=== PATIENT | female | born 1985 | race Caucasian/White ===

== ENCOUNTER 2016-04-30 09:02 | Inpatient (IN) | payer OTHER ==
[~2016-04-30] VITALS: Ht 154.9 cm; Wt 95.3 kg
[~2016-04-30 09:02] MED LIST: Docusate Sod/Senna PO; PERC5TAB12 PO; PRENTAB72 PO
[2016-05-22] VITALS (8 sets, daily range): BP systolic 104–137; BP diastolic 55–67; PULSE 6–88; RESP 18; TEMP 97.5–98.3; O2SAT 97–99
[2016-05-22] MEDS ORDERED: OXYTOCIN 10 UNIT/ML AMP ONE (08:58)
[2016-05-22] MEDS ORDERED: DICLOFENAC SODIUM 37.5 MG/ML VIAL IV PUSH ONE (09:36)
[2016-05-22] MEDS ORDERED: CITRIC ACID-SODIUM CITRATE LIQ 30 ML UDC PO SCH (09:45)
[2016-05-22] MEDS ORDERED: LACTATED RINGER'S 1000 ML IV ONE (09:45)
[2016-05-22] MEDS ORDERED: ceFAZolin 2 GM PREMIX 50 ML IV SCH (09:45)
[2016-05-22 09:54] LABS: AUTOMATED NEUTROPHIL # 7.2 TH/MM3 (1.8-7.7); BASOPHIL % 0.2 % (0.0-2.0); EOSINOPHIL # 0.2 TH/MM3 (0-0.4); HEMATOCRIT 31.9 % (35.0-46.0); HEMO FLAGS DIFF FINAL; LYMPHOCYTE # 1.8 TH/MM3 (1.0-4.8); MEAN CELL VOLUME 80.7 FL (80.0-100.0); MEAN CORPUSCULAR HEMOGLOBIN 26.1 PG (27.0-34.0); MEAN CORPUSCULAR HGB CONC 32.3 % (32.0-36.0); MONO % 9.1 % (0.0-8.0); NEUT % 70.7 % (16.0-70.0); PLATELET COUNT 125 TH/MM3 (150-450); RED BLOOD COUNT 3.95 MIL/MM3 (4.00-5.30); RED CELL DISTRIBUTION WIDTH 14.9 % (11.6-17.2); WHITE BLOOD COUNT 10.2 TH/MM3 (4.0-11.0)
[2016-05-22] MEDS: LACTATED RINGER'S 1000 ML IV SCH ×2 (10:00→22:02)
[2016-05-22 10:06] LABS: BACTERIA, URINE OCC /hpf; BLOOD, URINE SMALL (NEG); COMMENT (UR) CULT NOT INDICATED; CULTURE IF INDICATED CULT NOT INDICATED; GLUCOSE,URINE NEG (NEG); KETONE, URINE NEG (NEG); MUCUS URINE FEW /lpf (OCC); NITRITE,URINE NEG (NEG); PH, URINE 6.5 (5.0-8.5); SQUAMOUS EPITHELIAL CELL URINE 11 /hpf (0-5); URINE COLOR YELLOW (YELLW/STRAW)
[2016-05-22 10:23] LABS: ALKALINE PHOSPHATASE 159 U/L (45-117); TOTAL BILIRUBIN ADULT 0.3 MG/DL (0.2-1.0)
[2016-05-22 10:29] LABS: ALT (GPT) 19 U/L (10-53); ANION GAP 9 MEQ/L (5-15); AST (GOT) 25 U/L (15-37); BICARBONATE 21.9 MEQ/L (21.0-32.0); BLOOD UREA NITROGEN 6 MG/DL (7-18); CHLORIDE 108 MEQ/L (98-107); GLOMERULAR FILTRATION RATE 115 ML/MIN (>89); SODIUM (NA) 139 MEQ/L (136-145)
--- NOTE | 2016-05-22 11:28 | PD.OB.DELI ---
Procedure Note Section Procedure Pre Op Diagnosis 38 week IUP Pre eclampsia not severe multiparity Post Op Diagnosis: Post Op Diagnosis same, delivered Performed by Rocio Aguirre Procedure: Repeat Low Transverse Sec, Other (bilaeral fimbriectomy) Indication for delivery: Desired elective repeat Informed consent obtained: For anesthesia, For procedure Confirmed correct: Patient, Procedure, Site, Time-out taken Anesthesia: Spinal Medication prior to procedure: As documented in eMAR Monitoring during procedure: Blood pressure monitoring Urinary catheter: Inserted using sterile technique, To dependent drainage, ml urine output Sterile preparation: Duraprep, In usual fashion Position: Supine with wedge to right side Operative Features Skin Incision: Pfannenstiel Uterine Incision: Low transverse w/knife / blunt ext Membranes Ruptured: Artificially Presentation: Occiput anterior Delivery of infant: Assisted : Female, Single One Minute : 8 Five Minute : 9 Weight: 8 4 Status of infant: Viable, Cord blood Placenta delivered: Intact, [facility] Medications: Antibiotics Estimated blood loss: average Procedure tolerated: Well Maternal Complications: Other (pre eclampsia not severe) Maternal Condition: Stable Condition: Stable Procedure in detail dictated Rocio Aguirre MD May 22, 2016 11:28
[2016-05-22] MEDS ORDERED: OXYTOCIN 30 UNITS-500ML PREMIX 500 ML IV ONE (11:30)
[2016-05-22] MEDS ORDERED: ONDANSETRON HCL 4 MG/2 ML VIAL IV PUSH PRN (11:30)
[2016-05-22] MEDS ORDERED: ZOLPIDEM TARTRATE 5 MG TAB PO PRN (11:30)
[2016-05-22] MEDS ORDERED: SIMETHICONE 80 MG CHEWABLE TAB PO PRN (11:30)
[2016-05-22] MEDS ORDERED: SODIUM CHLORIDE 0.9% FLUSH 5 ML FLUSH IV PRN (11:30)
[2016-05-22] MEDS ORDERED: MORPHINE SULFATE PF 5 MG/10 ML VIAL ONE (11:32)
[2016-05-22] MEDS ORDERED: SODIUM CHLORIDE 0.9% FLUSH 5 ML FLUSH ONE (11:43)
[2016-05-22] MEDS ORDERED: ACETAMINOPHEN 1000 MG/100 ML VIAL IV ONE ×2 (11:55→12:00)
[2016-05-22] MEDS ORDERED: LACTATED RINGER'S 1,000 ML BAG IV ONE (12:05)
[2016-05-22] MEDS ORDERED: EPIDURAL-DO NOT ADMINISTER ANTICOAGULANTS XX PRN (13:30)
[2016-05-22] MEDS ORDERED: EPIDURAL-DIPHENHYDRAMINE HCL 50 MG/ML VIAL IV PUSH PRN (13:30)
[2016-05-22] MEDS ORDERED: EPIDURAL-NO SYSTEMIC NARCOTICS XX PRN (13:30)
[2016-05-22] MEDS ORDERED: EPIDURAL-NALOXONE HCL 0.4 MG/ML AMP IV PRN (13:30)
[2016-05-22] MEDS: EPIDURAL-DIPHENHYDRAMINE HCL 50 MG CAP PO PRN ×2 (15:19→22:02)
[2016-05-22] MEDS: IBUPROFEN 600 MG TAB PO PRN ×2 (15:20→22:02)
[2016-05-22] MEDS ORDERED: LACTATED RINGER'S 1000 ML INJ 1,000 ML IV SCH (16:28)
[2016-05-22] MEDS: SODIUM CHLORIDE 0.9% FLUSH 5 ML FLUSH IV SCH (20:04)
[2016-05-22] MEDS ORDERED: OXYTOCIN 30 UNITS-500ML PREMIX 500 ML IV PRN (21:30)
[2016-05-23] MEDS: EPIDURAL-DIPHENHYDRAMINE HCL 50 MG CAP PO PRN (04:50)
[2016-05-23] MEDS: IBUPROFEN 600 MG TAB PO PRN ×3 (04:50→20:12)
[2016-05-23] MEDS: LACTATED RINGER'S 1000 ML IV SCH (05:45)
[2016-05-23 05:52] LABS: AUTOMATED NEUTROPHIL # 6.8 TH/MM3 (1.8-7.7); BASOPHIL % 0.2 % (0.0-2.0); EOSINOPHIL # 0.1 TH/MM3 (0-0.4); EOSINOPHIL % 1.6 % (0.0-4.0); HEMATOCRIT 31.6 % (35.0-46.0); HEMO FLAGS DIFF FINAL; LYMPH % 11.3 % (9.0-44.0); MEAN CELL VOLUME 80.5 FL (80.0-100.0); MEAN CORPUSCULAR HEMOGLOBIN 26.3 PG (27.0-34.0); MEAN CORPUSCULAR HGB CONC 32.7 % (32.0-36.0); MONO % 10.2 % (0.0-8.0); NEUT % 76.7 % (16.0-70.0); PLATELET COUNT 114 TH/MM3 (150-450); RED BLOOD COUNT 3.93 MIL/MM3 (4.00-5.30); RED CELL DISTRIBUTION WIDTH 14.8 % (11.6-17.2); WHITE BLOOD COUNT 8.9 TH/MM3 (4.0-11.0)
[2016-05-23 06:12] LABS: URIC ACID 5.4 MG/DL (2.6-6.0)
[2016-05-23 06:13] LABS: INDIRECT BILIRUBIN 0.2 MG/DL (0.0-0.8); TOTAL BILIRUBIN ADULT 0.3 MG/DL (0.2-1.0)
[2016-05-23 08:20] VITALS: BP 113/60; PULSE 62; RESP 18; TEMP 98.1
--- NOTE | 2016-05-23 08:50 | HHI.OB ---
Subjective Post Operative Day: 1 Remarks POD#1, Stable Objective Vitals/I&O Vital Signs Date Time Temp Pulse Resp B/P Pulse Ox O2 Delivery O2 Flow Rate FiO2 05/22/16 19:21 97.7 76 18 137/64 98 05/22/16 17:00 6 122/58 05/22/16 17:00 98.3 67 18 05/22/16 13:05 98.1 67 18 106/67 05/22/16 12:16 117/67 05/22/16 12:16 97.5 05/22/16 12:05 97 05/22/16 12:00 88 116/66 05/22/16 11:49 87 18 104/55 98 05/22/16 11:35 88 115/64 05/22/16 11:35 97.5 18 99 Result Diagram: 05/23/16 0541 05/22/16 0910 Objective Remarks GENERAL: Well-nourished, well-developed patient. CARDIOVASCULAR: Regular rate and rhythm without murmurs, gallops, or rubs. RESPIRATORY: Breath sounds equal bilaterally. No accessory muscle use. ABDOMEN/GI: Abdomen soft, non-tender, bowel sounds present. Incision: Clean, dry and intact. Fundus: Firm, non-tender at umbilicus. GENITOURINARY: Light to moderate bleeding. EXTREMITIES: No cyanosis or edema, non-tender, without signs of DVT. Medications and IVs Current Medications Medications (Trade) Dose Ordered Sig/Cherelle Route Start Time Stop Time Status Last Admin Lactated Ringer's 1,000 ml @ 150 mls/hr Q6H40M IV 05/22/16 09:45 05/22/16 22:02 (Lr 1000 ml Inj) 1,000 ml @ 100 mls/hr Q10H IV 05/22/16 16:28 05/23/16 12:27 (NS Flush) 2 ml BID IV 05/22/16 21:00 (NS Flush) 2 ml UNSCH PRN IV 05/22/16 11:30 (Mylicon Chew) 80 mg QID PRN PO 05/22/16 11:30 (Motrin) 600 mg Q6H PRN PO 05/22/16 11:30 05/23/16 04:50 (Percocet 5-325 Mg) 1 tab Q4H PRN PO 05/22/16 11:30 (Percocet 5-325 Mg) 2 tab Q4H PRN PO 05/22/16 11:30 (Diana-Colace) 2 tab Q12H PRN PO 05/22/16 11:30 (Ambien) 5 mg HS PRN PO 05/22/16 11:30 (M-M-R Ii Inj) 0.5 ml ONCE ONCE SQ 05/23/16 16:00 05/23/16 16:01 (Boostrix Inj) 0.5 ml ONCE ONCE IM 05/23/16 16:00 05/23/16 16:01 (Zofran Inj) 4 mg Q6H PRN IV PUSH 05/22/16 11:30 Miscellaneous Information NO SYSTEMIC NARCOTICS TO BE GIVEN FO... UNSCH PRN XX 05/22/16 13:30 05/23/16 13:29 (Narcan Inj) 0.4 mg UNSCH PRN IV 05/22/16 13:30 05/23/16 13:29 (Benadryl Inj) 25 mg Q6H PRN IV PUSH 05/22/16 13:30 05/23/16 13:29 (Benadryl) 50 mg Q6H PRN PO 05/22/16 13:30 05/23/16 13:29 05/23/16 04:50 Miscellaneous Information ALL NURSING DEPARTMENTS UNSCH PRN XX 05/22/16 13:30 05/23/16 13:29 Assessment/Plan Assessment and Plan POD#1, Stable Discharge Planning Does not meet criteria Attending Attestation Seen by Topher Gomez MD May 23, 2016 08:50
[2016-05-23] MEDS: DOCUSATE SODIUM 50 MG/SENNA 8.6 MG TAB PO PRN ×2 (09:09→20:13)
[2016-05-23] MEDS: oxyCODONE/ACETAMINOPHEN 5 MG/325 MG TAB PO PRN ×4 (09:10→22:10)
--- NOTE | 2016-05-23 12:03 | MP ---
cc: ROCIO SHER DATE OF SURGERY: 05/22/2016 DATE OF : 1985 PREOPERATIVE DIAGNOSIS 1. 38-week intrauterine with preeclampsia, not severe. 2. History of previous section x2. 3. Multiparity POSTOPERATIVE DIAGNOSIS 1. 38-week intrauterine with preeclampsia, not severe. 2. History of previous section x2. 3. Multiparity PROCEDURE 1. Repeat low transverse segment section. 2. tubal fimbriectomy. ANESTHESIA Spinal with Duramorph. SURGEON Carla AIR CONDITIONING TECHNICIAN Sandy Suarez FINDINGS A living female was delivered from [place] with clear fluid and a nuchal cord x2. Her weight was 8 pounds 4 ounces. There was a little bit of a window in the lower uterine segment but no evidence of separation. Both fimbria were removed without difficulty. The baby's Apgars were 8 at one and 9 at five. ESTIMATED BLOOD LOSS Average. COUNTS Sponge, instrument and needle counts were correct. SPECIMEN [facility] Tubes were sent to pathology for confirmation. DETAILS OF PROCEDURE The patient was identified as Misty Real. The permit was reviewed with her. She received 2 grams Ancef within an hour of incision. She was walked to the back, placed on the operating table in the dorsal supine position with weight off the vena cava. This was after her spinal had been inserted. She had sequential stockings on and then a Carrero catheter was placed and she was prepped and draped in the usual sterile fashion. A timeout was performed with everybody in attendance. Analgesia was assured. A Pfannenstiel incision was made through her previous incision and taken down with the Bovie to the rectus muscle. The rectus muscle had a diastasis, was in the midline and then a bladder retractor was placed to hold down the bladder. An incision was made in a thin portion of the lower uterine segment releasing clear fluid and extended bluntly in the midline. The infant was delivered with the findings as noted above. Apgars 8 at one and 9 at five. Weight 8 pounds 4 ounces. The cord was left pulsing for 45 seconds before it was clamped and cut, and the infant was handed to the neonatology team in attending. Cord blood was obtained. The placenta was delivered manually intact from the posterior wall with a three-vessel cord. The uterus was exteriorized and cleaned with a lap sponge. It was closed with chromic in a running interlocking fashion and a second horizontal imbricating layer. The left tube was grasped and the distal portion including the fimbria were tied off and excised. The pedicle was hemostatic. This was repeated on the opposite side without difficulty. The tubes were tagged and sent to pathology. The uterus was replaced in the peritoneal cavity. There was no bleeding from the incisions. All areas were examined for hemostasis. Irrigation was performed. A running suture closed the combination of peritoneum and rectus muscle to repair the diastasis. The rectus fascia was closed with #1 Vicryl in a non-interlocking fashion. The subcutaneous layer was closed with 3-0 plain and the skin was closed with 4-0 Vicryl on a Todd needle. Estimated blood loss was average to less than average. Sponge, instrument and needle count were correct. She tolerated the procedure well and mom and baby are in the recovery room. Rocio Sher MD PPC/BT /11:25 AM /11:39 AM
[2016-05-23] MEDS ORDERED: MEASLES, MUMPS, RUBELLA VACCINE 0.5 ML VIAL SQ ONE (16:00)
[2016-05-23] MEDS ORDERED: DIPHTH/TETANUS/ACEL PERTUSSIS (BOOSTER) 0.5 ML VIAL/PFS IM ONE (16:00)
[2016-05-23 17:00] VITALS: BP 122/61; PULSE 74; RESP 16; TEMP 98.4
[2016-05-23 20:00] VITALS: BP 105/69; PULSE 65; RESP 20; TEMP 99
[2016-05-24] MEDS: oxyCODONE/ACETAMINOPHEN 5 MG/325 MG TAB PO PRN ×5 (02:10→21:48)
[2016-05-24] MEDS: IBUPROFEN 600 MG TAB PO PRN ×2 (02:10→17:57)
--- NOTE | 2016-05-24 11:10 | HHI.OB ---
Subjective Post Operative Day: 2 Remarks POD#2; Stable, Objective Vitals/I&O Vital Signs Date Time Temp Pulse Resp B/P Pulse Ox O2 Delivery O2 Flow Rate FiO2 05/23/16 20:00 99.0 65 20 05/23/16 20:00 105/69 05/23/16 17:00 98.4 74 16 05/23/16 17:00 122/61 Result Diagram: 05/23/16 0541 05/22/16 0910 Objective Remarks GENERAL: Well-nourished, well-developed patient. CARDIOVASCULAR: Regular rate and rhythm without murmurs, gallops, or rubs. RESPIRATORY: Breath sounds equal bilaterally. No accessory muscle use. ABDOMEN/GI: Abdomen soft, non-tender, bowel sounds present. Incision: Clean, dry and intact. Fundus: Firm, non-tender at umbilicus. GENITOURINARY: Light to moderate bleeding. EXTREMITIES: No cyanosis or edema, non-tender, without signs of DVT. Medications and IVs Current Medications Medications (Trade) Dose Ordered Sig/Cherelle Route Start Time Stop Time Status Last Admin (Lr 1000 ml Inj) 1,000 ml @ 150 mls/hr Q6H40M IV 05/22/16 09:45 05/22/16 22:02 (NS Flush) 2 ml BID IV 05/22/16 21:00 (NS Flush) 2 ml UNSCH PRN IV 05/22/16 11:30 (Mylicon Chew) 80 mg QID PRN PO 05/22/16 11:30 05/23/16 20:13 (Motrin) 600 mg Q6H PRN PO 05/22/16 11:30 05/24/16 02:10 (Percocet 5-325 Mg) 1 tab Q4H PRN PO 05/22/16 11:30 (Percocet 5-325 Mg) 2 tab Q4H PRN PO 05/22/16 11:30 05/24/16 08:55 (Diana-Colace) 2 tab Q12H PRN PO 05/22/16 11:30 05/23/16 20:13 (Ambien) 5 mg HS PRN PO 05/22/16 11:30 (Zofran Inj) 4 mg Q6H PRN IV PUSH 05/22/16 11:30 Assessment/Plan Assessment and Plan POD#2 ; Stable; anticipate discharge for tomorrow Discharge Planning Does not meet criteria Attending Attestation Seen by Topher Gomez MD May 24, 2016 11:10
--- NOTE | 2016-05-24 11:11 | HHI.DS ---
Admission Date May 22, 2016 at 08:48 Admitting Diagnosis Diagnosis: : Repeat : Female, Single Pt Condition on Discharge: Good Discharge Disposition: Discharge Home Discharge Instructions Diet Instructions: As Tolerated, No Restrictions Activities You Can Perform: Shower Only-No Bath Activities to Avoid: Prolonged Standing, Strenuous Activity, Driving, Sexual Activity Topher Orta MD May 24, 2016 11:11
[2016-05-24] MEDS: DOCUSATE SODIUM 50 MG/SENNA 8.6 MG TAB PO PRN (13:30)
[2016-05-24] MEDS: SODIUM CHLORIDE 0.9% FLUSH 5 ML FLUSH IV SCH (21:00)
[2016-05-25] MEDS: IBUPROFEN 600 MG TAB PO PRN ×2 (02:05→09:48)
[2016-05-25] MEDS: oxyCODONE/ACETAMINOPHEN 5 MG/325 MG TAB PO PRN ×3 (02:06→09:48)
[2016-05-25 03:05] VITALS: RESP 16
[2016-05-25] MEDS: DOCUSATE SODIUM 50 MG/SENNA 8.6 MG TAB PO PRN (05:52)
[2016-05-25] MEDS ORDERED: IBUP-232 PO (11:02)
[2016-05-25] MEDS ORDERED: OXYC1TAB63 PO (11:02)
--- NOTE | 2016-05-25 11:04 | HHI.OB ---
Subjective Post Operative Day: 2 Remarks POD#2; Stable for discharge; Objective Vitals/I&O Vital Signs Date Time Temp Pulse Resp B/P Pulse Ox O2 Delivery O2 Flow Rate FiO2 05/25/16 03:05 16 05/25/16 03:05 16 05/24/16 22:48 16 Result Diagram: 05/23/16 0541 05/22/16 0910 Objective Remarks GENERAL: Well-nourished, well-developed patient. CARDIOVASCULAR: Regular rate and rhythm without murmurs, gallops, or rubs. RESPIRATORY: Breath sounds equal bilaterally. No accessory muscle use. ABDOMEN/GI: Abdomen soft, non-tender, bowel sounds present. Incision: Clean, dry and intact. Fundus: Firm, non-tender at umbilicus. GENITOURINARY: Light to moderate bleeding. EXTREMITIES: No cyanosis or edema, non-tender, without signs of DVT. Medications and IVs Current Medications Medications (Trade) Dose Ordered Sig/Cherelle Route Start Time Stop Time Status Last Admin (Lr 1000 ml Inj) 1,000 ml @ 150 mls/hr Q6H40M IV 05/22/16 09:45 05/22/16 22:02 (NS Flush) 2 ml BID IV 05/22/16 21:00 (NS Flush) 2 ml UNSCH PRN IV 05/22/16 11:30 (Mylicon Chew) 80 mg QID PRN PO 05/22/16 11:30 05/23/16 20:13 (Motrin) 600 mg Q6H PRN PO 05/22/16 11:30 05/25/16 09:48 (Percocet 5-325 Mg) 1 tab Q4H PRN PO 05/22/16 11:30 05/25/16 09:48 (Percocet 5-325 Mg) 2 tab Q4H PRN PO 05/22/16 11:30 05/24/16 21:48 (Diana-Colace) 2 tab Q12H PRN PO 05/22/16 11:30 05/25/16 05:52 (Ambien) 5 mg HS PRN PO 05/22/16 11:30 (Zofran Inj) 4 mg Q6H PRN IV PUSH 05/22/16 11:30 Assessment/Plan Assessment and Plan POD#2 ; Stable; Discharge for today Discharge Planning Routine Attending Attestation Seen by Topher Gomez MD May 25, 2016 11:04
== END 2016-05-25 16:55 | disposition home or self-care (01) | DRG 766 ==
LOC: H2EB 05-22 08:48 → H1EA 05-22 12:31
PROVIDERS: ADMIT Obstetrics & Gynecology; ATTEND Obstetrics & Gynecology
PROC: 10D00Z1 Extraction of Products of Conception, Low, Open Approach (ICD-10-PCS; principal; 2016-05-22)
PROC: 0UB70ZZ Excision of Bilateral Fallopian Tubes, Open Approach (ICD-10-PCS; 2016-05-22)
DX: O14.94 Unspecified pre-eclampsia, complicating childbirth (principal); O34.211 Maternal care for low transverse scar from previous cesarean delivery; O69.81X0 Labor and delivery complicated by cord around neck, without compression, not applicable or unspecified; Z37.0 Single live birth; Z3A.38 38 weeks gestation of pregnancy; Z30.2 Encounter for sterilization
CPT/HCPCS: 59025; 80053; 80076; 81001; 84550; 85025; 86850; 86900; 86901; 88302; J0131; J0690; J1130; J2274; J2590; J7120; Q0163

== ENCOUNTER 2016-05-08 17:03 | Emergency (ER) | payer OTHER ==
[2016-05-08 18:32] LABS: BACTERIA, URINE OCC /hpf; BLOOD, URINE MOD (NEG); CALCIUM OXALATE CRYSTALS,URINE MOD /hpf; COMMENT (UR) CULT NOT INDICATED; CULTURE IF INDICATED CULT NOT INDICATED; GLUCOSE,URINE NEG (NEG); KETONE, URINE NEG (NEG); MUCUS URINE FEW /lpf (OCC); NITRITE,URINE NEG (NEG); SQUAMOUS EPITHELIAL CELL URINE 7 /hpf (0-5); URINE COLOR YELLOW (YELLW/STRAW)
--- NOTE | 2016-05-08 19:08 | PD ---
HPI Chief Complaint Blood in urine, minimal pain Date Seen: May 08, 2016 Travel History International Travel<30 Days: No Contact w/Intl Traveler<30Days: No Known Affected Area: No History of Present Illness HPI This patient is a 30-year-old white female previous [address] Aguirre for care presents now with pints of blood noted the urine passing small clots in the urine and active passing a small stone through the urine, she denies any vaginal bleeding she stop all the bleeding she seen is from the urethra and bladder none from the vagina and her membranes are intact ureter baby is active heart rate tracing reactive and she is having occasional contractions and the uterine irritability Para: 2 : 3 History Past Medical History Narrative Medical She denies any history of ever having a kidney stone Obstetric History Obstetric History 2 previous C-sections Past Surgical History Narrative Surgical 2 C-sections Family History Family History: Negative Social History Alcohol Use: No Tobacco Use: No Substance Abuse: No Allergies-Medications (Allergen,Severity, Reaction): Coded Allergies: No Known Allergies (Unverified , 03/15/12) Home Meds Active Scripts Oxycodone-Acetaminophen 5-325 mg (Percocet 5-325 mg)1 Tab Tab2 Tab PO Q4H PRN ( PAIN SCALE 5 TO 10) #20 TAB Ref 0 Prov:Shruthi Alvarez CNM 12/29/13 [Docusate Sod/Senna] (Diana Colace Tab 8.6 Mg Tab)1 TAB TAB No Conflict Check2 Tab PO Q12H PRN (CONSTIPATION) #15 TAB Ref 0 Prov:Shruthi Alvarez CNM 12/29/13 Reported Medications Vit W/ Ferrous Fumara () Tab1 Po Daily 03/15/12 Review of Systems General / Constitutional: No: Fever, Weight Gain, Chills, Other Eyes: No: Diploplia, Blurred Vision, Visual changes, Pain, Photophobia HENT: No: Headaches, Vertigo, Lightheadedness Cardiovascular: No: Irregular Rhythm, Chest Pain or Discomfort, Palpitations, Tachycardia, Syncope, Varicosities, Edema, Cyanosis Respiratory: No: Cough, Short of Breath, Other Gastrointestinal: No: Nausea, Vomiting, Diarrhea Genitourinary: Hematuria, Pelvic Pain, No: Decreased Urinary Output, Oliguria Musculoskeletal: No: Limited ROM, Weakness, Cramping, Edema, Pain Skin: No Rash, No Itching, No Dryness, No Lumps, No Change in Pigmentation, No Change in Nails, No Alopecia, No Lesions Neurologic: No: Weakness, Dizziness, Syncope, Focal Abnormalities, Coordination Problem, Headache, Slurred Speech, Seizures Psychiatric: No: Depression, Suicidal Ideations, Homicidal Ideation Endocrine: No: Heat Intolerance, Cold Intolerance, Polydipsia, Polyuria, Other Physical Exam Narrative GENERAL: Well-nourished, well-developed patient. SKIN: Warm and dry. HEAD: Normocephalic and atraumatic. EYES: No scleral icterus. No injection or drainage. ENT: No nasal drainage noted. Mucous membranes pink. Airway patent. NECK: Supple, trachea midline. No JVD. CARDIOVASCULAR: Regular rate and rhythm without murmurs, gallops, or rubs. RESPIRATORY: Breath sounds equal bilaterally. No accessory muscle use. BREASTS: Bilateral exam showed no masses , no retractions, no nipple discharge. ABDOMEN/GI: Abdomen soft, non-tender, bowel sounds present, no rebound, no guarding no CVA tenderness Gravid to [36-] weeks size Fundal Height: [36-] GENITOURINARY: External Genitalia: intact and normal in appearance BUS glands: [-] Cervix: [-] Closed Dilatation: [-] Closed Effacement: [-] Thick Station: [-3] Presentation: [-] Membranes: [intact Uterine Contractions: [Occasional-] FHT's: Category: [1-] Baseline: [144-] Reactive: [yes-] Variability: [-mod] Decels: [-none] EXTREMITIES: No cyanosis or edema. BACK: Nontender without obvious deformity. No CVA tenderness. NEUROLOGICAL: Awake and alert. Motor and sensory grossly within normal limits. Five out of 5 muscle strength in all muscle groups. Normal speech. Data Data Orders Urinalysis - C+S If Indicated (05/08/16 17:44) Labs Laboratory Tests Test 05/08/16 17:40 Urine Color YELLOW Urine Turbidity HAZY Urine pH 6.0 Urine Specific [place] 1.024 Urine Protein 30 Urine Glucose (UA) NEG Urine Ketones NEG Urine Occult Blood MOD Urine Nitrite NEG Urine Bilirubin NEG Urine Urobilinogen LESS THAN 2.0 Urine Leukocyte Esterase NEG Urine RBC 45 Urine WBC 3 Urine Squamous Epithelial 7 Cells Urine Calcium Oxalate Crystals MOD Urine Bacteria OCC Urine Mucus FEW Microscopic Urinalysis Comment CULT NOT INDICATED MDM Interpretation(s) This patient is a 30-year-old white female 36 weeks previous 2 presents combining of having passed a kidney stone with blood per urine and having some crampy pains. She did not take any Tylenol or anything for the pain at home. And was offered a pain shot tonight she did not want that urinalysis shows moderate blood calcium oxalate crystals no sign of infection consistent with kidney stone. heart rate tracing is reactive as cervix is closed she's had no vaginal bleeding or membranes are intact. She will be discharged home to greatly increase her of fluid intake that she's been drinking quite a bit of water already Tylenol liberally heating pad on her back or hot bath and follow up with her primary care provider if symptoms worsen Diagnosis Diagnosis: Primary Impression: Renal calculus or stone Additional Impression: Previous section Disposition: DISCHARGE HOME Condition: Stable Sean Foster II, MD May 08, 2016 19:08
== END 2016-05-08 19:12 | disposition home or self-care (01) ==
LOC: HOBED 17:03
DX: O26.832 Pregnancy related renal disease, second trimester (principal); N28.9 Disorder of kidney and ureter, unspecified; Z3A.36 36 weeks gestation of pregnancy; Z87.442 Personal history of urinary calculi
CPT/HCPCS: 59025; 81001

== ENCOUNTER 2016-07-13 11:40 | Emergency (ER) | payer OTHER ==
[~2016-07-13] VITALS: Ht 154.9 cm; Wt 77.0 kg
[~2016-07-13 11:40] MED LIST changes: +IBUP-232 PO; +OXYC1TAB63 PO; -PERC5TAB12 PO; -PRENTAB72 PO
[2016-07-13 11:41] VITALS: BP 132/72; PULSE 64; RESP 16; TEMP 98.5; O2SAT 98
[2016-07-13 12:13] VITALS: BP_SYST 115; BP_SYST 129; BP_DIAS 70; BP_DIAS 72; BP_DIAS 77
--- NOTE | 2016-07-13 12:24 | PD ---
HPI . Vaginal bleeding Chief Complaint: Valet Manager Problem/Complaint Time Seen by Provider: 11:51 Travel History International Travel<30 days: No Contact w/Intl Traveler<30days: No Traveled to known affect area: No History of Present Illness HPI This patient is 7 weeks . She had a . She states that she bled for about 4 weeks. The bleeding did become quite light. She started bleeding heavily again about 2-1/2 weeks ago. She states that she attributed to her 1st menstrual cycle since delivery. However, the bleeding has persisted and has worsened. It was associated with some pelvic cramping today. She states that she passed a large blood clot today. She has had minimal associated dizziness. She denies any chest pain or shortness of breath. She states that she was supposed to have seen her doctor last week for her heartburn checkup unable to keep the appointment because she had to be out of town for an emergency. She does have a follow-up scheduled this coming week. Ever, because of the clot and the dizziness, she decided to come in to us to be evaluated today. No exacerbating or relieving factor. Bleeding is severe. PFSH Past Medical History Medical other: Yes (preeclampsia on third ) ?: Not : 3 Para: 3 Tubal Ligation: Yes Past Surgical History Section: Yes Social History Alcohol Use: No Tobacco Use: No Substance Use: No Allergies-Medications (Allergen,Severity, Reaction): Coded Allergies: No Known Allergies (Unverified , 07/13/16) Reported Meds & Prescriptions Reported Meds & Active Scripts Active Oxycodone-Acetaminophen 5-325 mg Tab 1 Tab PO Q4H PRN Ibuprofen 600 Mg Tab 600 Mg PO Q6H PRN [Docusate Sod/Senna] 1 TAB Tab 2 Tab PO Q12H PRN Review of Systems Except as stated in HPI: all other systems reviewed are Neg General / Constitutional: No: Fever, Chills HENT: Positive: Lightheadedness Cardiovascular: No: Chest Pain or Discomfort Respiratory: No: Shortness of Breath Gastrointestinal: No: Nausea, Vomiting, Diarrhea Genitourinary: Positive: Pelvic Pain, Vaginal Bleeding, No: Urgency, Frequency , Dysuria Physical Exam Narrative GENERAL: Healthy-appearing and in no acute distress. SKIN: Warm and dry. HEAD: Atraumatic. Normocephalic. EYES: Pupils equal and round. ENT: No nasal bleeding or discharge. Mucous membranes pink and moist. NECK: Trachea midline. CARDIOVASCULAR: Regular rate and rhythm. RESPIRATORY: No accessory muscle use. GASTROINTESTINAL: Abdomen soft, non-tender, nondistended. : Normal female. Moderate blood in the vaginal vault. Os closed. No cervical motion tenderness. Bimanual exam. MUSCULOSKELETAL: No obvious deformities. No edema. NEUROLOGICAL: Awake and alert. No obvious cranial nerve deficits. Motor grossly within normal limits. Normal speech. PSYCHIATRIC: Appropriate mood and affect; insight and judgment normal. Data Data Last Documented VS Vital Signs Date Time Temp Pulse Resp B/P Pulse Ox O2 Delivery O2 Flow Rate FiO2 07/13/16 12:13 58 115/72 64 115/70 69 129/77 07/13/16 11:41 98.5 16 98 Orders Gc And Chlamydia Pcr (07/13/16 11:51) Wet Prep Profile (07/13/16 11:51) Ed Urine Pregnancytest Poc (07/13/16 11:51) Complete Blood Count With Diff (07/13/16 11:56) Orthostatic Vital Signs (07/13/16 11:56) Labs Laboratory Tests Test 07/13/16 12:20 White Blood Count 6.7 TH/MM3 Red Blood Count 4.58 MIL/MM3 Hemoglobin 12.4 GM/DL Hematocrit 37.5 % Mean Corpuscular Volume 81.9 FL Mean Corpuscular Hemoglobin 27.0 PG Mean Corpuscular Hemoglobin 32.9 % Concent Red Cell Distribution Width 17.7 % Platelet Count 259 TH/MM3 Mean Platelet Volume 9.3 FL Neutrophils (%) (Auto) 60.5 % Lymphocytes (%) (Auto) 29.5 % Monocytes (%) (Auto) 7.2 % Eosinophils (%) (Auto) 2.1 % Basophils (%) (Auto) 0.7 % Neutrophils # (Auto) 4.1 TH/MM3 Lymphocytes # (Auto) 2.0 TH/MM3 Monocytes # (Auto) 0.5 TH/MM3 Eosinophils # (Auto) 0.1 TH/MM3 Basophils # (Auto) 0.0 TH/MM3 CBC Comment DIFF FINAL Differential Comment MDM Medical Decision Making Medical Screen Exam Complete: Yes Emergency Medical Condition: Yes Differential Diagnosis Differential diagnosis of vaginal bleeding includes but is not limited to dysfunctional uterine bleeding, normal menstrual cycle, ectopic , spontaneous AB, PID. Narrative Course Patient presents for evaluation of heavy vaginal following a . CBC Diagram 07/13/16 12:20 test is negative. Orthostatic vital signs are negative. Diagnosis Primary Impression: Vaginal bleeding Patient Instructions: Dysfunctional Uterine Bleeding (DC), General Instructions Additional Instructions: Follow-up with your supervisor paper testing as scheduled Disposition: 01 DISCHARGE HOME Condition: Stable Lovely Fischer MD Jul 13, 2016 12:24
[2016-07-13 12:53] LABS: AUTOMATED NEUTROPHIL # 4.1 TH/MM3 (1.8-7.7); BASOPHIL % 0.7 % (0.0-2.0); EOSINOPHIL # 0.1 TH/MM3 (0-0.4); EOSINOPHIL % 2.1 % (0.0-4.0); HEMATOCRIT 37.5 % (35.0-46.0); HEMO FLAGS DIFF FINAL; LYMPH % 29.5 % (9.0-44.0); MEAN CELL VOLUME 81.9 FL (80.0-100.0); MEAN CORPUSCULAR HGB CONC 32.9 % (32.0-36.0); MONO % 7.2 % (0.0-8.0); NEUT % 60.5 % (16.0-70.0); PLATELET COUNT 259 TH/MM3 (150-450); RED BLOOD COUNT 4.58 MIL/MM3 (4.00-5.30); RED CELL DISTRIBUTION WIDTH 17.7 % (11.6-17.2); WHITE BLOOD COUNT 6.7 TH/MM3 (4.0-11.0)
[2016-07-13 14:56] LABS: CHLAMYDIA PCR NOT DETECTED (NOT DETECT); NEISSERIA PCR NOT DETECTED (NOT DETECT)
--- NOTE | 2016-07-13 15:52 | RADRPT ---
EXAM DATE/TIME: 07/13/2016 14:27 [facility] COMPARISON: No previous studies available for comparison. INDICATIONS : Heavy bleeding 7 weeks post section. MEDICAL HISTORY : 7 weeks post pardum. SURGICAL HISTORY : Tubal ligation. section x 3. ENCOUNTER: Initial ACUITY: 2 weeks PAIN SCORE: 0/10 LOCATION: Bilateral pelvis MEASUREMENTS: RIGHT OVARY: 3.3 x 2.1 x 2.5 cm LEFT OVARY: 3.6 x 2.5 x 2.3 cm UTERUS: 8.6 x 5.0 x cm ENDOMETRIAL STRIPE: 12 mm FINDINGS: Endometrium is thickened to about 12 mm with some vascularity. section scar is noted with so me heterogeneous echogenicity extending from the uterus towards the anterior abdominal wall. Ovaries unremarkable except for small follicular cysts. Trace free fluid in the cul-de-sac. CONCLUSION: 1. Thickened endometrium to about 12 mm. scar noted. Tiny follicular cysts in the ovaries. Trace free fluid. Giuseppe Franklin MD on July 13, 2016 at 15:46 Board Certified Radiologist. This report was verified electronically.
== END 2016-07-13 16:21 | disposition home or self-care (01) ==
LOC: NEPD 11:40
DX: O72.1 Other immediate postpartum hemorrhage (principal); R42 Dizziness and giddiness
CPT/HCPCS: 76830; 76856; 84703; 85025; 87491; 87591